=== PATIENT | female | born 1960 | race African-American/Black ===

== ENCOUNTER 2021-01-17 13:50 | Outpatient (CLI) | payer MEDICARE, MEDICAID | END 2021-01-17 13:51 | disposition home or self-care (01) | LOC: ULT 13:50 | PROVIDERS: ATTEND Family Medicine | DX: I83.893 Varicose veins of bilateral lower extremities with other complications (principal); M79.604 Pain in right leg; M79.605 Pain in left leg; I70.201 Unspecified atherosclerosis of native arteries of extremities, right leg | CPT/HCPCS: 93923; 93970 ==

== ENCOUNTER 2021-05-01 11:48 | Outpatient (CLI) | payer MEDICARE, MEDICAID | END 2021-05-01 11:49 | disposition home or self-care (01) | LOC: BICMAMMO 11:48 | PROVIDERS: ATTEND Family Medicine | DX: Z12.31 Encounter for screening mammogram for malignant neoplasm of breast (principal) | CPT/HCPCS: 77063; 77067 ==

== ENCOUNTER 2022-03-24 10:21 | Outpatient (CLI) | payer MEDICARE | END 2022-03-24 10:22 | disposition home or self-care (01) | LOC: MRI 10:21 | PROVIDERS: ATTEND Nurse Practitioner Family | DX: M51.16 Intervertebral disc disorders with radiculopathy, lumbar region (principal); M51.27 Other intervertebral disc displacement, lumbosacral region | CPT/HCPCS: 72148 ==

== ENCOUNTER 2022-05-25 11:08 | Outpatient (CLI) | payer MEDICARE, MEDICAID | END 2022-05-25 11:09 | disposition home or self-care (01) | LOC: BICMAMMO 11:08 | PROVIDERS: ATTEND Family Medicine | DX: Z12.31 Encounter for screening mammogram for malignant neoplasm of breast (principal) | CPT/HCPCS: 77063; 77067 ==

== ENCOUNTER 2022-12-31 12:30 | Outpatient (CLI) | payer OTHER, MEDICAID ==
[2022-12-31 13:36] LABS: Hemoglobin 13.2 g/dL (12.0-15.5); Mean Corpuscular Hemoglobin 29.9 pg (27.0-33.0); Mean Corpuscular Volume 93.7 fl (81.6-98.3); Mean Platelet Volume 9.1 fl (7.4-10.4); Platelet Count 363 10x3/uL (150-450); RBC Distribution Width 13.6 % (11.5-14.5); Red Blood Cell (RBC) Count 4.41 10x6/uL (3.90-5.03); White Blood Cell (WBC) Count 4.2 10x3/uL (3.5-10.5)
[2022-12-31 13:41] LABS: INR-International Normal Ratio 0.9; Prothrombin Time 10.3 sec (9.5-12.1)
[2022-12-31 13:45] LABS: Anion Gap 15 mmol/L (10-20); BUN (Urea Nitrogen) 13 mg/dL (9.8-20.1); Calc. Creatinine Clearance 0 mL/min (70-130); Calcium 10.3 mg/dL (7.8-10.44); Carbon Dioxide 25 mmol/L (22-29); Chloride 106 mmol/L (98-107); Estimated GFR 76; Glucose 130 mg/dL (70-105); Potassium 4.2 mmol/L (3.5-5.1); Sodium 142 mmol/L (136-145)
[2022-12-31 14:09] LABS: MDiff Complete? YES
[2022-12-31 14:14] LABS: Eosinophils 7 % (0-10); Lymphocytes 47 % (21-51); Monocytes 11 % (0-10); Neutrophil 31 % (42-75); Reactive Lymphocytes 3 % (0-10)
[2022-12-31 14:16] LABS: RBC Morphology Normal
== END 2022-12-31 12:31 | disposition home or self-care (01) ==
LOC: LABBT 12:30
PROVIDERS: ATTEND Orthopaedic Surgery
DX: Z01.818 Encounter for other preprocedural examination (principal); M17.12 Unilateral primary osteoarthritis, left knee
CPT/HCPCS: 80048; 85025; 85610; 87081; 93005; 93010

== ENCOUNTER 2023-01-05 07:04 | Observation (INO) | payer OTHER, MEDICAID ==
[2023-01-01 12:19] VITALS: BMI 42.0
[2023-01-05] MEDS ORDERED: Sodium Chloride 0.9% 100 ML ONE ×2 (07:59→09:15)
[2023-01-05] MEDS ORDERED: Vancomycin (BATCH) 1.5 GRAM/300 ML BAG ONE (07:59)
[2023-01-05] MEDS ORDERED: Tranexamic Acid 1,000 MG/10 ML VIAL ONE (07:59)
[2023-01-05] MEDS ORDERED: Fentanyl 100 MCG/2 ML VIAL ONE (08:17)
[2023-01-05] MEDS ORDERED: Bupivacaine PF 0.5% 30 ML VIAL ONE (08:17)
[2023-01-05] MEDS ORDERED: Midazolam HCl 2 mg/2 ml Vial ONE (08:17)
[2023-01-05] MEDS ORDERED: Bupivacaine HCl 0.5%/Epinephrine 1:200,000/PF 30 ml Vial ONE (08:32)
[2023-01-05] MEDS ORDERED: Bupivacaine/Epinephrine 0.25% 30 ML VIAL ONE (08:58)
[2023-01-05] MEDS ORDERED: Fentanyl 100 MCG/2 ML VIAL IV PRN (09:11)
[2023-01-05] MEDS ORDERED: fentaNYL PF 100 MCG/2 ML SYRINGE ONE (09:11)
[2023-01-05] MEDS ORDERED: Zolpidem Tartrate 5 MG TAB PO PRN ×2 (09:15→11:17)
[2023-01-05] MEDS ORDERED: Ropivacaine 0.2% 550 ML 550 ML NERVE BLCK SCH (09:15)
[2023-01-05] MEDS ORDERED: HYDROcodone/Acetaminophen 10/325 mg Tablet PO PRN ×3 (09:15→11:17)
[2023-01-05] MEDS ORDERED: CEFAZOLIN 2 GM VIAL ONE (09:15)
[2023-01-05] MEDS ORDERED: Promethazine HCl 25 MG/ML VIAL IM PRN ×2 (09:15→11:17)
[2023-01-05] MEDS ORDERED: Ondansetron PF 4 MG/2 ML Vial IVP PRN ×2 (09:15→11:17)
[2023-01-05] MEDS ORDERED: traMADol HCl 50 MG TAB PO PRN ×4 (09:15→11:17)
[2023-01-05] MEDS ORDERED: Dexmedetomidine 200 MCG/2 ML VIAL ONE (09:16)
[2023-01-05 09:18] LABS: SARS-CoV-2 NAA Rapid Test Not Detected (NotDetected)
[2023-01-05] MEDS ORDERED: PROPOFOL 200 MG/20 ML VIAL ONE (09:35)
[2023-01-05] MEDS ORDERED: Ondansetron PF 4 MG/2 ML Vial ONE (09:35)
[2023-01-05] MEDS ORDERED: Dexamethasone 20 MG/5 ML VIAL ONE (09:35)
[2023-01-05] MEDS ORDERED: ePHEDrine 50 MG/ML VIAL ONE (09:35)
[2023-01-05] MEDS ORDERED: diphenhydrAMINE 25 MG CAP PO PRN (11:17)
[2023-01-05] MEDS ORDERED: Acetaminophen 325 MG TAB PO PRN (11:17)
[2023-01-05] MEDS ORDERED: Ketorolac Tromethamine 30 MG/ML VIAL ONE (12:42)
[2023-01-05] MEDS: Ketorolac Tromethamine 30 MG/ML VIAL IVP SCH ×3 (12:44→23:45)
[2023-01-05] MEDS: Dextrose 5 %-0.45 % NaCl 1,000 ML IV SCH ×2 (12:45→21:36)
[2023-01-05] MEDS ORDERED: Methocarbamol 500 MG TAB PO PRN (15:30)
[2023-01-05] MEDS: CEFAZOLIN 2 GM in Sodium Chloride 0.9% 100 ML IVPB SCH (17:16)
[2023-01-05] MEDS ORDERED: Gabapentin 300 MG CAP PO SCH (21:00)
[2023-01-05] MEDS ORDERED: Oxybutynin 5 MG TAB PO SCH (21:00)
[2023-01-05] MEDS: Baclofen 10 MG TAB PO SCH (21:25)
[2023-01-05] MEDS: Aspirin 81 mg Enteric Coated Tablet PO SCH (21:26)
[2023-01-05] MEDS: HYDROcodone/Acetaminophen 10/325 mg Tablet PO PRN (21:29)
[2023-01-06] MEDS: CEFAZOLIN 2 GM in Sodium Chloride 0.9% 100 ML IVPB SCH (02:52)
[2023-01-06 06:21] LABS: Hemoglobin 11.6 g/dL (12.0-16.0); Mean Corpuscular HGB CONC 32.7 g/dL (32.0-36.0); Mean Corpuscular Hemoglobin 31.7 pg (27.0-31.0); Mean Platelet Volume 6.5 fL (7.4-10.4); Platelet Count 312 10x3/uL (130-400); RBC Distribution Width 12.7 % (11.5-14.5); Red Blood Cell (RBC) Count 3.65 mill/uL (4.20-5.40); White Blood Cell (WBC) Count 11.1 10x3/uL (4.8-10.8)
[2023-01-06] MEDS: Ketorolac Tromethamine 30 MG/ML VIAL IVP SCH ×2 (06:26→11:19)
[2023-01-06] MEDS: Dextrose 5 %-0.45 % NaCl 1,000 ML IV SCH (06:51)
[2023-01-06] MEDS ORDERED: Ferrous Gluconate 324 MG TAB PO SCH (08:00)
[2023-01-06] MEDS: Baclofen 10 MG TAB PO SCH (08:16)
[2023-01-06] MEDS: HYDROcodone/Acetaminophen 10/325 mg Tablet PO PRN (08:16)
[2023-01-06] MEDS: Aspirin 81 mg Enteric Coated Tablet PO SCH (08:16)
[2023-01-06] MEDS ORDERED: Senokot S 8.6-50 MG TAB PO SCH (09:00)
[2023-01-06] MEDS ORDERED: Fish Oil 1,000 MG CAP PO SCH (09:00)
[2023-01-06] MEDS ORDERED: Multivitamin W/ Minerals 1 TAB PO SCH (09:00)
[2023-01-06 11:31] VITALS: BP 121/68; TEMP 97.8
== END 2023-01-06 17:00 | disposition home or self-care (01) ==
LOC: SDC 07:04 → SURG B 14:43
PROVIDERS: ADMIT Orthopaedic Surgery; ATTEND Orthopaedic Surgery
PROC: 0SRD0J9 Replacement of Left Knee Joint with Synthetic Substitute, Cemented, Open Approach (ICD-10-PCS; principal; 2023-01-05)
DX: M17.0 Bilateral primary osteoarthritis of knee (principal); E78.5 Hyperlipidemia, unspecified; M47.816 Spondylosis without myelopathy or radiculopathy, lumbar region; R73.03 Prediabetes; M79.7 Fibromyalgia; E66.01 Morbid (severe) obesity due to excess calories; Z68.41 Body mass index [BMI] 40.0-44.9, adult; Z79.1 Long term (current) use of non-steroidal anti-inflammatories (NSAID); Z79.82 Long term (current) use of aspirin; Z79.899 Other long term (current) drug therapy; Z88.2 Allergy status to sulfonamides; Z20.822 Contact with and (suspected) exposure to COVID-19
CPT/HCPCS: 27447; 73560; 85027; 97110 ×2; 97116; 97530; A4306; C1713; C1776; J3370; U0002; 36415; 96365; 96375; 96376; G0378; J1100; J1885; J2250; J2405; J2704; J2795; J3010; J3490; S0020

== ENCOUNTER 2023-01-13 14:58 | Outpatient (CLI) | payer OTHER | END 2023-01-13 14:59 | disposition home or self-care (01) | LOC: ULT 14:58 | PROVIDERS: ATTEND Orthopaedic Surgery | DX: M79.662 Pain in left lower leg (principal); Z96.652 Presence of left artificial knee joint ==

== ENCOUNTER 2023-09-09 10:41 | Outpatient (CLI) | payer MEDICARE | END 2023-09-09 10:42 | disposition home or self-care (01) | LOC: BICULT 10:41 | PROVIDERS: ATTEND Orthopaedic Surgery | DX: M79.662 Pain in left lower leg (principal); Z96.652 Presence of left artificial knee joint ==

== ENCOUNTER 2024-12-08 10:40 | Outpatient (CLI) | payer OTHER | END 2024-12-08 10:41 | disposition home or self-care (01) | LOC: BICMAMMO 10:40 | PROVIDERS: ATTEND Physician Assistant | DX: Z12.31 Encounter for screening mammogram for malignant neoplasm of breast (principal) | CPT/HCPCS: 77063; 77067 ==